=== PATIENT | female | born 1990 | race Caucasian/White ===

== ENCOUNTER 2020-07-10 12:58 | Outpatient (CLI) | payer OTHER ==
--- NOTE | 2020-07-10 13:46 | MMO ---
Bilateral MAMMO Bilat Diag [facility]. CLINICAL HISTORY: Patient is 29 years old and is seen for diagnostic exam. The patient has no family history of breast cancer. The patient has no personal history of cancer. VIEWS: The views performed were: bilateral craniocaudal with tomosynthesis; bilateral mediolateral oblique with tomosynthesis; and bilateral mediolateral with tomosynthesis. FILMS COMPARED: The present examination has been compared to a prior imaging study performed at [facility] on 07/10/2020. This study has been interpreted with the assistance of computer-aided detection. MAMMOGRAM FINDINGS: There are scattered fibroglandular densities. Finding 1: There is an intramammary lymph node seen in the right breast. Finding 2: Bilateral Breast US shows no abnormality. IMPRESSION: FINDING 1: INTRAMAMMARY LYMPH NODE IN THE RIGHT BREAST IS BENIGN. FINDING 2: FINDINGS IN BOTH BREASTS ARE BENIGN. A ROUTINE FOLLOW-UP MAMMOGRAM AT AGE 39 IS RECOMMENDED. AGE APPROPRIATE SCREENING BASED ON RISK FACTORS IS RECOMMENDED. THE RESULTS OF THIS EXAM WERE SENT TO THE PATIENT. ACR BI-RADS Category 2 - Benign finding MAMMOGRAPHY NOTE: 1. A negative mammogram report should not delay a biopsy if a dominant of clinically suspicious mass is present. 2. Approximately 10% to 15% of breast cancers are not detected by mammography. 3. Adenosis and dense breasts may obscure an underlying neoplasm. Reported by: KRISTEN HARDIN MD Electonically Signed: [id number]
--- NOTE | 2020-07-10 14:31 | ULT ---
COMPLETE RIGHT BREAST ULTRASOUND: COMPLETE LEFT BREAST ULTRASOUND: 07/10/20 HISTORY: Bilateral breast pain all over. FINDINGS: Correlation is made with mammogram of same day. Sonographic evaluation of the breast was performed bilaterally. No abnormality identified. IMPRESSION: BIRADS 2: Benign Finding(s) Return to age-appropriate screening mammography based on risk factors. POS: OFF
== END 2020-07-10 12:59 | disposition home or self-care (01) ==
LOC: BICMAMMO 12:58
PROVIDERS: ATTEND Family Medicine
DX: N64.4 Mastodynia (principal)
CPT/HCPCS: 77066; G0279

== ENCOUNTER 2020-11-30 13:06 | Outpatient (CLI) | payer OTHER | END 2020-11-30 13:07 | disposition home or self-care (01) | LOC: BICRAD 13:06 | PROVIDERS: ATTEND Family Medicine | DX: M54.5 Low back pain (principal) | CPT/HCPCS: 72100 ==